=== PATIENT | male | born 1995 | race Caucasian/White ===

== ENCOUNTER 2022-02-02 22:35 | Emergency (ER) | payer SELFPAY ==
[2022-02-02 22:39] VITALS: BP 158/89; PULSE 86; RESP 18; O2SAT 95; BMI 25.1
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
[2022-02-02 23:05] VITALS: RESP 20; O2SAT 96
[2022-02-02] MEDS: morphine 4 mg/mL SDV 1 mL IVP ×2 (23:05→23:50)
[2022-02-02] MEDS: ondansetron 2 mg/ML SDV 2 mL 4 MG IVP (23:06)
[2022-02-02 23:47] VITALS: BP 112/96; PULSE 90; RESP 17; O2SAT 95
[2022-02-02 23:50] VITALS: RESP 17
[2022-02-03] VITALS (8 sets, daily range): BP systolic 109–139; BP diastolic 65–73; PULSE 81–90; RESP 18–32; O2SAT 92–98
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
[2022-02-03] MEDS: HYDROmorphone 1 mg/mL INJ 1 mL IVP ×3 (01:29→04:10)
== END 2022-02-03 04:10 | disposition home or self-care (01) ==
PROVIDERS: Emergency Provider Emergency Medicine
DX: S01.512A Laceration without foreign body of oral cavity, initial encounter (principal); V48.0XXA Car driver injured in noncollision transport accident in nontraffic accident, initial encounter; S32.020A Wedge compression fracture of second lumbar vertebra, initial encounter for closed fracture
CPT/HCPCS: 41250; 70450; 70486; 72125; 72131; 72192; 96374; 96375; 96376; 99284; J1170; J2270; J2405